=== PATIENT | male | born 1970 | race Caucasian/White ===

== ENCOUNTER 2016-08-14 17:06 | Emergency (ER) | payer SELFPAY ==
[2016-08-14 17:28] VITALS: BP 122/66; PULSE 73; TEMP 98.5; BMI 27.4
--- NOTE | 2016-08-14 17:32 | PDOC ---
History of Present Illness - History of Present Illness Initial Comments: 08/14/16 17:48 Patient is a 46 year old male with no significant medical hx who is presenting to the ED with sudden onset of nausea and headache that began at 2 pm today. Patient reports he was at work when he had a sudden onset of frontal headache paired with nausea. The patient denies a history of migraines and reports he rarely gets headaches. He reports that hes been feeling better since taking an ibuprofen and being in the ED. The patient denies any fever, chills, vomiting, photophobia, or visual changes. Patient denies past medical hx, chronic medications, past surgeries, known allergies, or hospitalizations. Social Hx: Current everyday smoker; patient smokes 2-4 cigarettes per day for 30 years. Occasional alcohol use. Family Hx: Mom - DM. Denies FHx of brain bleeds, aneurysm, or strokes. <Patricia Pascal - Last Filed: 08/14/16 19:07> <Luz Mcknight - Last Filed: 08/14/16 21:49> - General Chief Complaint: Headache Stated Complaint: HEADACHE Time Seen by Provider: 08/14/16 17:28 Past History <Patricia Pascal - Last Filed: 08/14/16 19:07> - Past Medical History Other medical history: NONE - Psycho/Social/Smoking Cessation Hx Anxiety: No Suicidal Ideation: No Smoking History: Current every day smoker Have you smoked in the past 12 months: Yes Number of Cigarettes Smoked Daily: 5 Information on smoking cessation initiated: Yes 'Breaking Loose' booklet given: 08/14/16 Hx Alcohol Use: No Drug/Substance Use Hx: No Substance Use Type: None <Luz Mcknight - Last Filed: 08/14/16 21:49> - Past Medical History Allergies/Adverse Reactions: Allergies Allergy/AdvReac Type Severity Reaction Status Date / Time No Known Allergies Allergy Verified 08/14/16 17:17 Home Medications: Ambulatory Orders NK [No Known Home Medication] 08/14/16 Review of Systems - Review of Systems Comments:: 08/14/16 17:49 CONSTITUTIONAL: Absent: fever, chills, diaphoresis, generalized weakness, malaise, loss of appetite HEENT: Absent: rhinorrhea, nasal congestion, throat pain, throat swelling, difficulty swallowing, mouth swelling, ear pain, eye pain, visual changes CARDIOVASCULAR: Absent: chest pain, syncope, palpitations, irregular heart rate, lightheadedness , peripheral edema RESPIRATORY: Absent: cough, shortness of breath, dyspnea with exertion, orthopnea, wheezing, stridor, hemoptysis GASTROINTESTINAL: Present: nausea Absent: abdominal pain, abdominal distension, vomiting, diarrhea, constipation, melena, hematochezia GENITOURINARY: Absent: dysuria, frequency, urgency, hesitancy, hematuria, flank pain, genital pain MUSCULOSKELETAL: Absent: myalgia, arthralgia, joint swelling SKIN: Absent: rash, itching, pallor HEMATOLOGIC/IMMUNOLOGIC: Absent: easy bleeding, easy bruising, lymphadenopathy, frequent infections ENDOCRINE: Absent: unexplained weight gain, unexplained weight loss, heat intolerance, cold intolerance NEUROLOGIC: Present: headache Absent: focal weakness or paresthesia, dizziness, unsteady gait, seizure, mental status changes, bladder or bowel incontinence. PSYCHIATRIC: Absent: anxiety, depression, suicidal or homicidal ideation, hallucinations <Patricia Pascal - Last Filed: 08/14/16 19:07> *Physical Exam - Vital Signs Last Vital Signs Temp Pulse Resp BP Pulse Ox 98.5 F 73 18 122/66 100 08/14/16 17:18 08/14/16 17:18 08/14/16 17:18 08/14/16 17:18 08/14/16 17:18 - Physical Exam Comments: 08/14/16 17:50 GENERAL: Well developed, well nourished. Awake and alert. No acute distress. HEENT: Normocephalic, atraumatic. PERRLA, EOMI. No conjunctival pallor. Sclera are non- icteric. Moist mucous membranes. Oropharynx is clear. NECK: Supple. Full ROM. No JVD. Carotid pulses 2+ and symmetric, without bruits. No thyromegaly. No lymphadenopathy. CARDIOVASCULAR: Regular rate and rhythm. No murmurs, rubs, or gallops. Distal pulses are 2+ and symmetric. PULMONARY: No evidence of respiratory distress. Lungs clear to auscultation bilaterally. No wheezing, rales or rhonchi. ABDOMINAL: Soft. Non-tender. Non-distended. No rebound or guarding. No organomegaly. Normoactive bowel sounds. MUSCULOSKELETAL: Normal range of motion at all joints. No bony deformities or tenderness. No CVA tenderness. EXTREMITIES: No cyanosis. No clubbing. No edema. No calf tenderness. SKIN: Warm and dry. Normal capillary refill. No rashes. No jaundice. NEUROLOGICAL: Alert, awake, appropriate. Cranial nerves 2-12 intact. Normal speech. Gait is normal without ataxia. PSYCHIATRIC: Cooperative. Good eye contact. Appropriate mood and affect. <Patricia Pascal - Last Filed: 08/14/16 19:07> - Vital Signs Last Vital Signs Temp Pulse Resp BP Pulse Ox 98.5 F 73 18 122/66 100 08/14/16 17:18 08/14/16 17:18 08/14/16 17:18 08/14/16 17:18 08/14/16 17:18 <Luz Mcknight - Last Filed: 08/14/16 21:49> ED Treatment Course - LABORATORY CBC & Chemistry Diagram: 08/14/16 17:55 08/14/16 17:55 - RADIOLOGY Radiograph Interpretation: 08/14/16 19:[address] Impression: No evidence of a focal intracranial lesion or hemorrhage is seen. Correlate clinically to determine further evaluation and follow up. Reported By: Brittany Rollins MD <Patricia Pascal - Last Filed: 08/14/16 19:07> - LABORATORY CBC & Chemistry Diagram: 08/14/16 17:55 08/14/16 17:55 <Luz Mcknight - Last Filed: 08/14/16 21:49> Medical Decision Making - Medical Decision Making 08/14/16 21:42 46-year-old male developed a sudden headache at 2pm this afternoon and he had some nausea associated with it. By the time he arrived at the emergency department his headache had begun to resolve. He had take motrin for it -he denied any family history of intracranial bleeds/aneuryms or strokes PCP at [facility] -there was a leukocytosis that I could not explain. He denies any neck pain, body aches,abd pain,cough,body aches,visual changes,fever or chills -he had remained asymptomatic and was discharged home - <Luz Mcknight - Last Filed: 08/14/16 21:49> *DC/Admit/Observation/Transfer - Attestations Scribe Attestion: 08/14/16 17:51 Documentation prepared by Patricia Pascal, acting as medical specialist for Luz Mcknight MD. <Patricia Pascal - Last Filed: 08/14/16 19:07> <Luz Mcknight - Last Filed: 08/14/16 21:49> Diagnosis at time of Disposition: Headache Qualifiers: Headache type: unspecified Headache chronicity pattern: unspecified pattern Intractability: not intractable Qualified Code(s): R51 - Headache - Discharge Dispostion Disposition: HOME Condition at time of disposition: Stable - Patient Instructions Printed Discharge Instructions: DI for Headache Additional Instructions: If you develop any headaches associated with visual changes, weakness,fever, vomiting-return to the emergency department
[2016-08-14] MEDS ORDERED: ONDANSETRON *ODT* 4 MG TABLET SL ONE (17:40)
[2016-08-14] MEDS ORDERED: ONDANSETRON *ODT* 4 MG TABLET ONE (17:59)
[2016-08-14 18:12] LABS: BASOPHIL 0.3 % (0-2.0); EOSINOPHIL 0.4 % (0-4.5); MCH 30.9 pg (25.7-33.7); MCHC 33.3 g/dl (32.0-35.9); MEAN CELL VOLUME 92.9 fl (80-96); MEAN PLT VOLUME 8.5 fl (7.5-11.1); NEUTROPHILS 84.9 % (42.8-82.8); PLATELET COUNT 234 K/MM3 (134-434); RDW 12.5 % (11.9-15.9); WHITE BLOOD COUNT 15.6 K/mm3 (4.0-10.0)
[2016-08-14 18:47] LABS: ANION GAP 8 (8-16); CALCIUM 8.9 mg/dL (8.5-10.1); CO2 25 mmol/L (21-32); CREATININE 0.8 mg/dL (0.7-1.3); GLUCOSE,RANDOM 105 mg/dL (74-106); SGOT/AST 20 U/L (15-37); SGPT/ALT 34 U/L (12-78)
[2016-08-14 18:48] LABS: ALK PHOS 104 U/L (45-117); BILIRUBIN,TOTAL 0.6 mg/dL (0.2-1.0); TOT PROT 7.6 g/dl (6.4-8.2)
[2016-08-14 21:07] LABS: URINE APPEARANCE CLEAR; URINE BILIRUBIN NEGATIVE (NEGATIVE); URINE BLOOD TRACE-INTA (NEGATIVE); URINE COLOR LT. YELLOW; URINE GLUCOSE (UA) NEGATIVE (NEGATIVE); URINE KETONE NEGATIVE (NEGATIVE); URINE LEUK ESTERASE NEGATIVE (NEGATIVE); URINE NITRITE NEGATIVE (NEGATIVE); URINE PROTEIN NEGATIVE (NEGATIVE); URINE UROBILINOGEN 0.2 E.U/dl E.U./dl (0.2-1.0)
== END 2016-08-14 21:56 | disposition home or self-care (01) ==
LOC: JER 17:06
DX: R51 Headache (principal)
CPT/HCPCS: 36415; 70450-TC; 80053; 81003; 85025; 99284-25

== ENCOUNTER 2018-10-28 11:04 | Emergency (ER) | payer OTHER ==
[2018-10-28 11:28] VITALS: BP 140/84; PULSE 65; TEMP 98.4; BMI 27.6
[2018-10-28] MEDS ORDERED: IBUPROFEN 400 MG TABLET (FP) PO ONE ×2 (13:27→14:14)
--- NOTE | 2018-10-28 14:23 | PDOC ---
History of Present Illness <Jerry Huntley - Last Filed: 10/28/18 15:11> - General History Source: Patient Exam Limitations: No Limitations - History of Present Illness Initial Comments: 10/28/18 13:28 48 yo male pmh of HLD presents to the ED with headache and dizziness. 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 Admits to photophobia but denies LOC, changes in vision/speech, N/V/F/C, neck pain/stiffness, weakness or sensory changes on 1 side of his body. Denies FHx of brain bleeds, aneurysm, or strokes. Pt has had similar, more intense pain in the past, head CT negative and improved with NSAIDs however has not tried NSAIDs today. <Asif Sandoval - Last Filed: 10/31/18 21:47> - General Chief Complaint: Lightheaded Stated Complaint: HEADACHE / DIZZINESS Time Seen by Provider: 10/28/18 12:55 Past History <Jerry Huntley - Last Filed: 10/28/18 15:11> - Past Medical History COPD: No - Suicide/Smoking/Psychosocial Hx Smoking History: Current every day smoker Have you smoked in the past 12 months: Yes Number of Cigarettes Smoked Daily: 4 Information on smoking cessation initiated: Yes 'Breaking Loose' booklet given: 08/14/16 Hx Alcohol Use: No Drug/Substance Use Hx: No Substance Use Type: None <Asif Sandoval - Last Filed: 10/31/18 21:47> - Past Medical History Allergies/Adverse Reactions: Allergies Allergy/AdvReac Type Severity Reaction Status Date / Time No Known Allergies Allergy Verified 10/28/18 11:23 Home Medications: Ambulatory Orders NK [No Known Home Medication] 08/14/16 Review of Systems - Review of Systems Constitutional: No: Chills, Fever HEENTM: Yes: Other (photophobia). No: Blurred Vision, Double Vision Respiratory: No: Shortness of Breath Cardiac (ROS): No: Chest Pain, Edema ABD/GI: No: Constipated, Diarrhea, Nausea, Vomiting : No: Burning, Dysuria Musculoskeletal: No: Back Pain Integumentary: No: Change in Color Neurological: Yes: Headache. No: Numbness, Tingling, Weakness, Unsteady Gait, Ataxia <Asif Sandoval - Last Filed: 10/31/18 21:47> *Physical Exam - Vital Signs Last Vital Signs Temp Pulse Resp BP Pulse Ox 98.4 F 65 20 140/84 98 10/28/18 11:23 10/28/18 11:23 10/28/18 11:23 10/28/18 11:23 10/28/18 11:23 <Jerry Huntley - Last Filed: 10/28/18 15:11> - Vital Signs Last Vital Signs Temp Pulse Resp BP Pulse Ox 98.4 F 65 20 140/84 98 10/28/18 11:23 10/28/18 11:23 10/28/18 11:23 10/28/18 11:23 10/28/18 11:23 - Physical Exam General Appearance: Yes: Nourished, Appropriately Dressed. No: Apparent Distress HEENT: positive: EOMI, ALEXANDREA, Normal Voice, TMs Normal, Photophobia, Hearing Grossly Normal Neck: positive: Supple. negative: Carotid bruit, Tender midline Respiratory/Chest: positive: Lungs Clear, Normal Breath Sounds. negative: Accessory Muscle Use, Rapid RR, Crackles, Wheezing Cardiovascular: positive: Regular Rhythm, Regular Rate, S1, S2. negative: Edema , JVD, Murmur Vascular Pulses: Dorsalis-Pedis (R): 4+, Doralis-Pedis (L): 4+ Gastrointestinal/Abdominal: positive: Flat, Soft. negative: Pulsatile Mass, Protuberent, Tenderness Musculoskeletal: positive: Normal Inspection. 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 negative: Facial Droop, Numbness, Sensory Deficit, Finger to Nose (normal), Confused, Disoriented <Asif Sandoval - Last Filed: 10/31/18 21:47> ED Treatment Course - Medications Given in the ED: ED Medications Discontinued Medications Generic Name Dose Route Start Last Admin Trade Name Freq PRN Reason Stop Dose Admin Ibuprofen 800 mg 10/28/18 13:27 10/28/18 14:15 Motrin - PO 10/28/18 13:28 800 mg ONCE ONE Administration <Jerry Huntley - Last Filed: 10/28/18 15:11> Medical Decision Making - Medical Decision Making 10/28/18 14:56 48 yo male pmh of HLD presents to the ED with headache and dizziness. 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 Admits to photophobia but denies LOC, changes in vision/speech, N/V/F/C, neck pain/stiffness, weakness or sensory changes on 1 side of his body. Denies FHx of brain bleeds, aneurysm, or strokes. Pt has had similar, more intense pain in the past, head CT negative and improved with NSAIDs however has not tried NSAIDs today. 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 pt PENN resolved and no longer dizzy, ambulating without difficulty after 800 motrin Pt has had similar, less severe PENN in the past with negative CT reading and resolved with NSAIDs. Todays PENN appears to be similar and non emergent due to lack of focal neuro deficits and complete resolution of PENN with Motrin. Discussed head CT with pt and shared decision making made to not peruse imaging at this time. Pt understands and agrees with plan, given strict return precautions. DC home with PCP F/U <Asif Sandoval - Last Filed: 10/31/18 21:47> *DC/Admit/Observation/Transfer <Jerry Huntley - Last Filed: 10/28/18 15:11> - Discharge Dispostion Decision to Admit order: No <Asif Sandoval - Last Filed: 10/31/18 21:47> Diagnosis at time of Disposition: Headache - Discharge Dispostion Disposition: HOME Condition at time of disposition: Good - Referrals Referrals: Agustín Dinh DO [Staff Physician] - - Patient Instructions Printed Discharge Instructions: DI for Headache Additional Instructions: Please see your Primary Doctor within the next 48 hours. Take over the counter Tylenol and Motrin every 4-6 hours for your headaches. Return to the ER for new or concerning symptoms including but not limited to: severe headaches, changes in vision or speech, nausea/vomiting, weakness or changes in sensation on 1 side of your body. Thank you
--- NOTE | 2018-10-28 15:15 | PDOC ---
Attending Attestation - Resident Resident Name: Asif Sandoval - ED Attending Attestation I have performed the following: I have examined & evaluated the patient, The case was reviewed & discussed with the resident, I agree w/resident's findings & plan - HPI HPI: 10/28/18 15:11 48y/o M h/o mild intermittent headaches p/w headache. mild, gradual onset without f/c/n/v/focal deficit. slight photophobia. has taken ibuprofen in the past with relief, this time only slight relief with tylenol so presents for evaluation. no injury, no neck stiffness - Physicial Exam PE: 10/28/18 15:13 Vital signs normal Patient is well-appearing, no sinus tenderness Neck is supple, neurologically intact - Medical Decision Making 10/28/18 15:14 48-year-old male with history of headaches presents with headache recurrence, no red flags on history or physical exam. Afebrile here and neurologically intact. Seen here in the past and CT head showed no acute abnormality in the setting of similar presentation Given ibuprofen with resolution of his headache Agrees with discharge plan, provided neurology referral, understands return criteria
== END 2018-10-28 15:15 | disposition home or self-care (01) ==
LOC: JER 11:04
DX: R51 Headache (principal)
CPT/HCPCS: 99283-25

== ENCOUNTER 2020-02-21 10:17 | Emergency (ER) | payer OTHER ==
[2020-02-21 10:22] VITALS: BP 126/81; PULSE 75; TEMP 99.7; BMI 25.7
--- NOTE | 2020-02-21 10:54 | PDOC ---
History of Present Illness - General Chief Complaint: Ear Problem Stated Complaint: EARACHE Time Seen by Provider: 02/21/20 10:23 History Source: Patient Exam Limitations: No Limitations Past History - Travel History Traveled outside of the country in the last 30 days: No Close contact w/someone who was outside of country & ill: No - Medical History Allergies/Adverse Reactions: Allergies Allergy/AdvReac Type Severity Reaction Status Date / Time No Known Allergies Allergy Verified 02/21/20 10:22 Home Medications: Ambulatory Orders Ibuprofen 600 mg PO Q6H #30 tablet 02/21/20 Ofloxacin Otic [Floxin Otic -] 10 drop OT BID #150 drops 02/21/20 COPD: No - Psycho-Social/Smoking History Smoking History: Never smoked Have you smoked in the past 12 months: Yes Number of Cigarettes Smoked Daily: 4 'Breaking Loose' booklet given: 08/14/16 - Substance Abuse Hx (Audit-C & DAST Scrn) How often the patient has a drink containing alcohol: Never Score: In Men: 4 or > Positive; In Women: 3 or > Positive: 0 Screen Result (Pos requires Nsg. Audit-10AR): Negative Review of Systems - Review of Systems Able to Perform ROS?: Yes Comments:: 02/21/20 10:47 CONSTITUTIONAL: Absent: fever, chills, diaphoresis, generalized weakness, malaise, loss of appetite HEENT: Present: L ear pain absent: rhinorrhea, nasal congestion, throat pain, throat swelling, difficulty swallowing, mouth swelling, ear pain, eye pain, visual Changes CARDIOVASCULAR: Absent: chest pain, loss of consciousness, palpitations, irregular heart rate, peripheral edema RESPIRATORY: Absent: cough, shortness of breath, dyspnea with exertion, orthopnea, wheezing, stridor, hemoptysis GASTROINTESTINAL: Absent: abdominal pain, abdominal distension, nausea, vomiting, diarrhea, constipation, melena, hematochezia GENITOURINARY: Absent: dysuria, frequency, urgency, hesitancy, hematuria, flank pain, genital pain MUSCULOSKELETAL: Absent: myalgia, arthralgia, joint swelling SKIN: Absent: rash, itching, pallor HEMATOLOGIC/IMMUNOLOGIC: Absent: easy bleeding, easy bruising, lymphadenopathy, frequent infections ENDOCRINE: Absent: unexplained weight gain, unexplained weight loss, heat intolerance, cold intolerance NEUROLOGIC: Absent: headache, focal weakness or paresthesias, dizziness, unsteady gait, seizure, mental status changes, bladder or bowel incontinence PSYCHIATRIC: Absent: anxiety, depression, suicidal or homicidal ideation, hallucinations. Is the patient limited Turkmen proficient: No *Physical Exam - Vital Signs Last Vital Signs Temp Pulse Resp BP Pulse Ox 99.7 F H 75 18 126/81 98 02/21/20 10:19 02/21/20 10:19 02/21/20 10:19 02/21/20 10:19 02/21/20 10:19 - Physical Exam 02/21/20 10:50 GENERAL: The patient is awake, alert, and fully oriented, in no acute distress. HEAD: Normal with no signs of trauma. EYES: Pupils equal, round and reactive to light, extraocular movements intact, sclera anicteric, conjunctiva clear. HEENT: No nasal congestion or rhinorrhea. No sinus Tenderness. Mucous membranes are moist. No tonsillar erythema, exudate or edema. Uvula is midline. No R TM bulging, dullness or erythema. L TM unable to be visualized d/t ear canal swelling. Exudate noted to the L ear canal. EXTREMITIES: Normal range of motion, no edema. NEUROLOGICAL: Normal speech, normal gait. PSYCH: Normal mood, normal affect. SKIN: Warm, Dry, normal turgor, no rashes or lesions noted. Medical Decision Making - Medical Decision Making 02/21/20 10:54 The patient is a 49 y/o M with no PMH who presents to the ER for L ear pain for 4 days. He states that he has been trying [id number] eardrops with little relief of his symptoms. He states that the ear is very tender to touch. Denies recent swimming or trauma. Denies fevers, chills, cough, shortness of breath and sore throat. A/P: Otitis externa On exam patient is a tender left tragus with edema noted to the left canal. No tenderness over the mastoid air cells. Likely an otitis externa infection. We will treat with ofloxacin drops. Discharge home with ENT/PCP follow-up. Return precautions given. I discussed the physical exam findings, ancillary test results and final diagnoses with the patient. I answered all of the patient's questions. The patient was satisfied with the care received and felt comfortable with the discharge plan and treatment plan. The Patient agrees to follow up with the primary care physician/specialist within 24-72 hours. Return precautions were given. Discharge - Discharge Information Problems reviewed: Yes Clinical Impression/Diagnosis: Otitis externa Qualifiers: Otitis externa type: unspecified type Chronicity: acute Laterality: left Qualified Code(s): H60.502 - Unspecified acute noninfective otitis externa, left ear Condition: Stable Disposition: HOME - Admission No - Follow up/Referral Referrals: Christoph Burch MD [Staff Physician] - [facility] [place] [Provider Group] - Patient Discharge Instructions Patient Printed Discharge Instructions: DI for Otitis Externa Additional Instructions: You have otitis externa. This is an infection of the ear canal. Please use the eardrops as directed for the next 10 days to the affected ear. Do not put anything in the ear, including q-tips. Keep the ear dry. Do not go swimming for the next 2 weeks. Pat the ear dry with a towel after showering. Follow up with ENT if your symptoms are not improving in 7-10 days Return to the ED if you have worsening pain, fevers, dizziness or if you have any changes in your symptoms. - Post Discharge Activity Work/Back to School Note: Back to Work
== END 2020-02-21 11:30 | disposition home or self-care (01) ==
LOC: JERFT 10:17
DX: H60.502 Unspecified acute noninfective otitis externa, left ear (principal)
CPT/HCPCS: 99282-25

== ENCOUNTER 2021-02-14 12:06 | Emergency (ER) | payer OTHER ==
[2021-02-14 12:29] VITALS: PULSE 79; TEMP 98.4; BMI 28.3
[2021-02-14] MEDS ORDERED: SODIUM CHLORIDE 0.9% 500 ML INFUS.BAG IV ONE (13:29)
[2021-02-14] MEDS ORDERED: ACETAMINOPHEN 325 MG TABLET (FP) PO ONE (13:30)
[2021-02-14] MEDS ORDERED: METOCLOPRAMIDE HCL INJECTION 10 MG/2 ML VIAL IVPUSH ONE (13:31)
[2021-02-14 13:49] LABS: EOS % 1.5 % (0-4.5); HEMATOCRIT 46.9 % (35.4-49); HEMOGLOBIN 16.1 GM/dL (11.7-16.9); LYMPH % 23.2 % (8-40); MCH 32.2 pg (25.7-33.7); MCHC 34.4 g/dl (32.0-35.9); MEAN CELL VOLUME 93.5 fl (80-96); MEAN PLT VOLUME 8.9 fl (7.5-11.1); MONO % 10.3 % (3.8-10.2); PLATELET COUNT 204 10^3/uL (134-434); RBC 5.01 M/mm3 (4.00-5.60); RDW 12.7 % (11.9-15.9); WHITE BLOOD COUNT 7.3 K/mm3 (4.0-10.0)
[2021-02-14] MEDS ORDERED: ACETAMINOPHEN 325 MG TABLET (FP) ONE (14:03)
[2021-02-14] MEDS ORDERED: METOCLOPRAMIDE HCL INJECTION 10 MG/2 ML VIAL ONE (14:04)
[2021-02-14 14:07] LABS: CHLORIDE 108 mmol/L (98-107); SODIUM 140 mmol/L (136-145)
[2021-02-14 14:09] LABS: ALBUMIN 3.8 g/dl (3.4-5.0); ANION GAP 8 MMOL/L (8-16); BLOOD UREA NITROGEN 11.8 mg/dL (7-18); CALCIUM 8.9 mg/dL (8.5-10.1); CO2 23 mmol/L (21-32)
[2021-02-14 14:10] LABS: GLUCOSE,RANDOM 95 mg/dL (74-106)
[2021-02-14 14:12] LABS: SGOT/AST 21 U/L (15-37); SGPT/ALT 35 U/L (13-61)
[2021-02-14 14:13] LABS: CREATININE 0.8 mg/dL (0.55-1.3)
[2021-02-14 14:14] LABS: BILIRUBIN,TOTAL 0.6 mg/dL (0.2-1); TOT PROT 7.2 g/dl (6.4-8.2)
[2021-02-14 14:15] LABS: ALK PHOS 101 U/L (45-117)
[2021-02-14 15:18] VITALS: BP 128/64
== END 2021-02-14 15:19 | disposition home or self-care (01) ==
LOC: JER 12:06
PROC: 3E033GC Introduction of Other Therapeutic Substance into Peripheral Vein, Percutaneous Approach (ICD-10-PCS; principal; 2021-02-14)
DX: R51.9 Headache, unspecified (principal)
CPT/HCPCS: 36415; 71045-TC-FY; 80053; 82550; 82553; 84484; 85025; 93005; 93010; 99285-25